=== PATIENT | female | born 1975 | race Caucasian/White ===

== ENCOUNTER 2017-12-10 23:19 | Emergency (ER) | payer MEDICARE, OTHER ==
[~2017-12-10] VITALS: Ht 149.9 cm; Wt 60.4 kg
[2017-12-10 23:31] VITALS: BP 151/80
[2017-12-11] MEDS ORDERED: SULF1TAB49 PO (01:22)
[2017-12-11] MEDS ORDERED: CEPH-572 PO (01:22)
== END 2017-12-11 01:35 | disposition home or self-care (01) ==
LOC: ER 23:19
DX: N76.4 Abscess of vulva (principal); E10.9 Type 1 diabetes mellitus without complications; Z86.14 Personal history of Methicillin resistant Staphylococcus aureus infection; Z79.899 Other long term (current) drug therapy
CPT/HCPCS: 99283